=== PATIENT | male | born 1975 | race Caucasian/White ===

== ENCOUNTER 2017-06-20 03:30 | Emergency (ER) | payer BC, MEDICAID ==
[2017-06-20 04:01] VITALS: BP 135/86
[2017-06-20] MEDS ORDERED: Azithromycin 250 MG Tab PO ONE (04:07)
--- NOTE | 2017-06-24 09:49 | ER ---
DATE SEEN: 06/20/2017 TIME SEEN: The patient was seen at 0345 hours. HISTORY OF PRESENT ILLNESS: The patient notes that he feels short of breath. He has "a little wheezing" and he has a slight pain in his chest when he coughs. Denies fever, but has slightly productive cough and slightly congested and associated sore throat. He has been sick for the last 2 to 3 days. His and daughter are healthy and stable. 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 He drinks alcohol rarely, does not smoke, weighs 320 pounds, and recently had tests at the clinic and they are "all slightly bad". He is not put on any medicine. ALLERGIES: None. MEDICATIONS: None. In the past, he has come in for his sinusitis and dental abscess. He has discussed mild burning in his throat. He has some chest burning also. REVIEW OF SYSTEMS: Negative except for he is overweight. He had recent multiple abnormal lab tests at the clinic, but does not remember what they are. Review of systems otherwise negative. PHYSICAL EXAMINATION: VITAL SIGNS: Blood pressure 135/86, heart rate 92, respirations 18, oxygen saturation 95%, and temperature is 36.4 degrees centigrade. GENERAL: Very obese, pear-shaped, 320-pound man in no acute distress. HEENT/NECK: Pressure on the sinuses. Minimal discomfort. No pain in the back of his neck. No pain in the anterior neck. Minimal cervical adenopathy. NECK: Supple. Pharynx with mild erythema. LUNGS: Clear to auscultation anteriorly and superiorly, but he has rales at the bases bilateral on both sides. Mild number of rales. He has mild audible breathing when he breathes. Audible breath sounds. No stridor. HEART: S1, S2. No irregular rate and rhythm. No murmur. ABDOMEN: Moderate increased fullness and tense into his abdomen because of his obesity. No palpable masses or megaly of the liver or spleen. EXTREMITIES: With 1+ pedal edema. ASSESSMENT: Bronchitis, early pneumonia, and pharyngitis. PLAN: [place]. Two quarts of water a day. Wear a face mask. (He did not want to wear his face mask when the nurse gave him one, so he is disinclined to use it, but I encouraged him to use it to spare other people of his infection). Follow up with doctor as needed in 1 to 2 weeks and earlier if worse. /[id number] MAGEN/ANNIKA GUERRERO
== END 2017-06-20 04:15 | disposition home or self-care (01) ==
LOC: FB.ED 03:30
DX: J18.9 Pneumonia, unspecified organism (principal); J40 Bronchitis, not specified as acute or chronic; J02.9 Acute pharyngitis, unspecified
CPT/HCPCS: 99284; A9270

== ENCOUNTER 2017-06-30 11:59 | Emergency (ER) | payer BC, MEDICAID ==
[2017-06-30] MEDS ORDERED: Ketorolac 60 MG/2 ML SDV IM ONE (12:08)
[2017-06-30] MEDS ORDERED: Lactated Ringers 1,000 ML IV ONE (12:14)
[2017-06-30] MEDS ORDERED: HYDROmorphone 2 MG/ML SDV IVPUSH ONE ×2 (12:15→14:29)
[2017-06-30] MEDS ORDERED: Ketorolac 30 MG/ML SDV IVPUSH ONE (12:15)
[2017-06-30] MEDS ORDERED: Ondansetron 4 MG/2 ML SDV IVPUSH ONE (12:16)
--- NOTE | 2017-06-30 12:22 | EDM.PDOC ---
ED HPI GENERAL MEDICAL PROBLEM - General Chief Complaint: Gastrointestinal Problem Stated Complaint: STOMACH PAIN Time Seen by Provider: 06/30/17 12:10 Source of Information: Reports: Patient History Limitations: Reports: No Limitations - History of Present Illness INITIAL COMMENTS - FREE TEXT/NARRATIVE: 41 yo male here with abrupt onset of L sided abdominal pain that began about 20 minutes before arrival and occurred while sitting at a desk. Normal BM's lately. Urination before the onset of pain revealed somewhat dark colored urine. No fever. No nausea before arrival. No prior surgeries. No hx of kidney stones. Here alone. Is now retching/vomiting in the ER. Onset: Today Onset Date: 06/30/17 Onset Time: 11:50 Duration: Minutes: Location: Reports: Abdomen Quality: Reports: Other (Feels like something exploded in his abdomen. ) Severity: Severe Improves with: Reports: None Worsens with: Reports: None Context: Reports: Other (unknown) Associated Symptoms: Reports: Nausea/Vomiting (now for the first time in the ER) . 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 Psychiatric History: Reports: Anxiety, Depression, Psych Hospitalization(s) Dermatologic History: Reports: Other (See Below) Other Dermatologic History: Hx MRSA to L groin area in past. - Infectious Disease History Infectious Disease History: Reports: MRSA - Past Surgical History HEENT Surgical History: Reports: Other (See Below) Social & Family History - Family History Family Medical History: Noncontributory - Tobacco Use Smoking Status *Q: Former Smoker Years of Tobacco use: 32 Packs/Tins Daily: 1 Used Tobacco, but Quit: No Second Hand Smoke Exposure: No - Recreational Drug Use Recreational Drug Use: No Drug Use in Last 12 Months: No Recreational Drug Type: Reports: Marijuana/Hashish ED ROS GENERAL - Review of Systems Review Of Systems: See Below Constitutional: Reports: No Symptoms HEENT: Reports: No Symptoms Respiratory: Reports: No Symptoms Cardiovascular: Reports: No Symptoms Endocrine: Reports: No Symptoms GI/Abdominal: Reports: Abdominal Pain, Nausea, Vomiting. Denies: Black Stool, Bloody Stool, Constipation, Diarrhea, Distension, Flatus, Hematemesis, Hematochezia, Melena, Stool Incontinence : Reports: Other (urine dark in color today) Musculoskeletal: Reports: No Symptoms Skin: Reports: No Symptoms Neurological: Reports: No Symptoms ED EXAM, GI/ABD - Physical Exam Exam: See Below Exam Limited By: No Limitations General Appearance: Alert, WD/WN, Mild Distress, Obese Eyes: Bilateral: Normal Appearance Ears: Normal External Exam, Normal Canal, Hearing Grossly Normal Nose: Normal Inspection, Normal Mucosa, No Blood Throat/Mouth: Normal Inspection, Normal Lips, Normal Oropharynx, Normal Voice, No Airway Compromise Head: Atraumatic, Normocephalic Neck: Normal Inspection, Supple, Non-Tender Respiratory/Chest: No Respiratory Distress, Lungs Clear, Normal Breath Sounds, No Accessory Muscle Use Cardiovascular: Regular Rate, Rhythm, No Edema GI/Abdominal Exam: Soft, No Distention, Tender (L mid abdomen), Abnormal Bowel Sounds (slightly decreased.), Other (Obese). No: Guarding, Rigid, Rebound Back Exam: Normal Inspection. No: CVA Tenderness (R), CVA Tenderness (L) Extremities: Normal Range of Motion, Non-Tender, Normal Capillary Refill, Pedal Edema (Trace to both LE's below the knees.). No: Joint Swelling, Anila's Sign, Leg Pain, Limited Range of Motion, Increased Warmth, Mottled, Redness Neurological: Alert, Oriented, CN II-XII Intact, Normal Cognition, No Motor/ Sensory Deficits Psychiatric: Normal Affect, Normal Mood Skin Exam: Warm, Dry, Intact, No Rash, Other (hemosiderin staining of the skin of both lower legs.). No: Cyanosis, Diaphoretic, Ecchymosis, Erythema, Jaundice , Petechiae, Rash, Wound/Incision, Zoster-Like Rash Lymphatic: No Adenopathy Course - Vital Signs Last Recorded V/S: Last Vital Signs Temp 36.4 C 06/30/17 12:00 Pulse 75 06/30/17 12:00 Resp 22 H 06/30/17 12:00 BP 133/79 06/30/17 12:00 Pulse Ox 100 06/30/17 12:00 - Orders/Labs/Meds Labs: Laboratory Tests 06/30/17 06/30/17 06/30/17 Range/Units 12:35 12:35 12:35 WBC 8.3 (4.5-12.0) X10-3/uL RBC 4.97 (4.30-5.75) x10(6)uL Hgb 14.7 (11.5-15.5) g/dL Hct 42.5 (30.0-51.3) % MCV 85.5 (80-96) fL MCH 29.7 (27.7-33.6) pg MCHC 34.7 (32.2-35.4) g/dL RDW 12.4 (11.5-15.5) % Plt Count 259 (125-369) X10(3)uL Sodium 136 (135-145) mmol/L Potassium 3.9 (3.5-5.3) mmol/L Chloride 104 (100-110) mmol/L Carbon Dioxide 21 L (23-29) mmol/L BUN 15 (5-20) mg/dL Creatinine 0.7 (0.6-1.3) mg/dL Est Cr Clr Drug Dosing 153.97 mL/min Estimated GFR (MDRD) > 60 (>60) BUN/Creatinine Ratio 21.4 H (9-20) Glucose 180 H (80-116) mg/dL Calcium 8.9 (8.6-10.2) mg/dL Total Bilirubin 0.7 (0.1-1.3) mg/dL AST 26 (5-27) IU/L ALT 29 H (14-26) IU/L Alkaline Phosphatase 54 L (56-112) IU/L C-Reactive Protein 0.7 (0.0-1.0) mg/dL Total Protein 7.3 (6.0-8.0) g/dL Albumin 4.1 (3.5-5.2) g/dL Globulin 3.2 g/dL Albumin/Globulin Ratio 1.3 Urine Color (YELLOW) Urine Appearance (CLEAR) Urine pH (5.0-6.5) Ur Specific [place] (1.010-1.025) Urine Protein (NEGATIVE) mg/dL Urine Glucose (UA) (NEGATIVE) mg/dL Urine Ketones (NEGATIVE) mg/dL Urine Occult Blood (NEGATIVE) Urine Nitrite (NEGATIVE) Urine Bilirubin (NEGATIVE) Urine Urobilinogen (NEGATIVE) mg/dL Ur Leukocyte Esterase (NEGATIVE) Urine RBC (0) Urine WBC (0) Ur Squamous Epith Cells (NS,R,O) Urine Bacteria (NS) Urine Mucus (NS) 06/30/17 Range/Units 13:30 WBC (4.5-12.0) X10-3/uL RBC (4.30-5.75) x10(6)uL Hgb (11.5-15.5) g/dL Hct (30.0-51.3) % MCV (80-96) fL MCH (27.7-33.6) pg MCHC (32.2-35.4) g/dL RDW (11.5-15.5) % Plt Count (125-369) X10(3)uL Sodium (135-145) mmol/L Potassium (3.5-5.3) mmol/L Chloride (100-110) mmol/L Carbon Dioxide (23-29) mmol/L BUN (5-20) mg/dL Creatinine (0.6-1.3) mg/dL Est Cr Clr Drug Dosing mL/min Estimated GFR (MDRD) (>60) BUN/Creatinine Ratio (9-20) Glucose (80-116) mg/dL Calcium (8.6-10.2) mg/dL Total Bilirubin (0.1-1.3) mg/dL AST (5-27) IU/L ALT (14-26) IU/L Alkaline Phosphatase (56-112) IU/L C-Reactive Protein (0.0-1.0) mg/dL Total Protein (6.0-8.0) g/dL Albumin (3.5-5.2) g/dL Globulin g/dL Albumin/Globulin Ratio Urine Color Yellow (YELLOW) Urine Appearance Slightly cloudy (CLEAR) Urine pH 5.0 (5.0-6.5) Ur Specific [place] 1.030 H (1.010-1.025) Urine Protein Negative (NEGATIVE) mg/dL Urine Glucose (UA) 50 H (NEGATIVE) mg/dL Urine Ketones Negative (NEGATIVE) mg/dL Urine Occult Blood Large H (NEGATIVE) Urine Nitrite Negative (NEGATIVE) Urine Bilirubin Negative (NEGATIVE) Urine Urobilinogen Normal (NEGATIVE) mg/dL Ur Leukocyte Esterase Negative (NEGATIVE) Urine RBC >100 H (0) Urine WBC 0-5 (0) Ur Squamous Epith Cells Rare (NS,R,O) Urine Bacteria Moderate H (NS) Urine Mucus Many H (NS) Meds: Medications Discontinued Medications Generic Name Dose Route Start Last Admin Trade Name Marekq PRN Reason Stop Dose Admin Hydromorphone HCl 0.5 mg 06/30/17 12:15 06/30/17 12:30 Dilaudid IVPUSH 06/30/17 12:16 0.5 mg ONETIME ONE Administration Lactated Ringer's 1,000 mls @ 1,000 mls/hr 06/30/17 12:14 06/30/17 12:28 Ringers, Lactated IV 06/30/17 13:13 1,000 mls/hr BOLUS ONE Administration Ketorolac Tromethamine 60 mg 06/30/17 12:08 06/30/17 12:34 Toradol IM 06/30/17 12:09 Not Given ONETIME ONE Ketorolac Tromethamine 30 mg 06/30/17 12:15 06/30/17 12:31 Toradol IVPUSH 06/30/17 12:16 30 mg ONETIME ONE Administration Ondansetron HCl 8 mg 06/30/17 12:16 06/30/17 12:33 Zofran IVPUSH 06/30/17 12:17 8 mg ONETIME ONE Administration Departure - Departure Time of Disposition: 14:15 Disposition: Home, Self-Care 01 Condition: Fair Clinical Impression: Ureterolithiasis, Elevated blood sugar Obesity Qualifiers: Obesity type: due to excess calories Obesity classification: unspecified obesity classification Serious obesity comorbidity presence: without serious comorbidity Qualified Code(s): E66.09 - Other obesity due to excess calories - Discharge Information Forms: ED Department Discharge
[2017-06-30 15:06] VITALS: BP 136/78
== END 2017-06-30 14:45 | disposition home or self-care (01) ==
LOC: FB.ED 11:59
DX: N20.1 Calculus of ureter (principal); R73.9 Hyperglycemia, unspecified; E66.09 Other obesity due to excess calories; Z87.891 Personal history of nicotine dependence
CPT/HCPCS: 36415; 80053; 81001; 85027; 86140; 96361; 96374; 96375; 96376; 99283; J1170; J1885; J2405; J7120

== ENCOUNTER 2017-07-28 15:54 | Emergency (ER) | payer BC, MEDICAID, OTHER ==
[2017-07-28] MEDS ORDERED: Ketorolac 60 MG/2 ML SDV IM ONE (16:14)
--- NOTE | 2017-07-28 16:20 | EDM.PDOC ---
ED HPI GENERAL MEDICAL PROBLEM - General Chief Complaint: Flank Pain Stated Complaint: KIDNEY STONES Time Seen by Provider: 07/28/17 16:05 Source of Information: Reports: Patient, Old Records History Limitations: Reports: No Limitations - History of Present Illness INITIAL COMMENTS - FREE TEXT/NARRATIVE: 41 yo male presents with LLQ abdominal pain with radiation to the L flank much like he had a month ago when seen for presumed kidney stone. Passed some small debri last time, but never had it analyzed. Pain is a little less now than earlier. No fever. Nausea has passed. 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 Psychiatric History: Reports: Anxiety, Depression, Psych Hospitalization(s) Dermatologic History: Reports: Other (See Below) Other Dermatologic History: Hx MRSA to L groin area in past. - Infectious Disease History Infectious Disease History: Reports: MRSA - Past Surgical History HEENT Surgical History: Reports: Other (See Below) Social & Family History - Family History Family Medical History: Noncontributory - Tobacco Use Smoking Status *Q: Former Smoker Years of Tobacco use: 32 Packs/Tins Daily: 1 Used Tobacco, but Quit: No Second Hand Smoke Exposure: No - Recreational Drug Use Recreational Drug Use: No Drug Use in Last 12 Months: No Recreational Drug Type: Reports: Marijuana/Hashish ED ROS GENERAL - Review of Systems Review Of Systems: See Below Constitutional: Reports: No Symptoms Respiratory: Reports: No Symptoms Cardiovascular: Reports: No Symptoms GI/Abdominal: Reports: Abdominal Pain (LLQ), Nausea. Denies: Black Stool, Bloody Stool, Constipation, Diarrhea, Decreased Appetite, Hematemesis, Hematochezia, Melena, Vomiting : Reports: Flank Pain (Left). Denies: Discharge, Dysuria, Frequency, Hematuria, Pain, Urgency, Urinary Retention Musculoskeletal: Reports: No Symptoms Skin: Reports: No Symptoms Neurological: Reports: No Symptoms ED EXAM, GI/ABD - Physical Exam Exam: See Below Exam Limited By: No Limitations General Appearance: Alert, WD/WN, No Apparent Distress, Obese Eyes: Bilateral: Normal Appearance Ears: Normal External Exam, Normal Canal, Hearing Grossly Normal Nose: Normal Inspection, Normal Mucosa Throat/Mouth: Normal Inspection, Normal Lips, Normal Oropharynx, Normal Voice, No Airway Compromise Head: Atraumatic, Normocephalic Neck: Normal Inspection, Supple Respiratory/Chest: No Respiratory Distress, Lungs Clear, Normal Breath Sounds, No Accessory Muscle Use Cardiovascular: Regular Rate, Rhythm GI/Abdominal Exam: Normal Bowel Sounds, Soft, No Distention, Tender (minimal LLQ on palpation) Back Exam: Normal Inspection. No: CVA Tenderness (R), CVA Tenderness (L) Extremities: Normal Inspection, Normal Range of Motion, Non-Tender, No Pedal Edema Neurological: Alert, Oriented, CN II-XII Intact, Normal Cognition, No Motor/ Sensory Deficits Psychiatric: Normal Affect, Normal Mood Skin Exam: Warm, Dry, Intact, Normal Color, No Rash Lymphatic: No Adenopathy Course - Vital Signs Last Recorded V/S: Last Vital Signs Temp 36.8 C 07/28/17 17:02 Pulse 76 07/28/17 17:02 Resp 18 07/28/17 17:02 BP 129/79 07/28/17 17:02 Pulse Ox 97 07/28/17 17:02 - Orders/Labs/Meds Orders: Active Orders 24 hr Category Date Time Status Abdomen Pelvis wo Cont [CT] Stat Exams 07/28/17 16:14 Taken CULTURE URINE [RM] Stat Lab 07/28/17 16:51 Received CULTURE URINE [RM] Stat Lab 07/28/17 17:38 Ordered Labs: Laboratory Tests 07/28/17 Range/Units 16:51 Urine Color [place] (YELLOW) Urine Appearance Slightly cloudy (CLEAR) Urine pH 5.0 (5.0-6.5) Ur Specific [place] 1.025 (1.010-1.025) Urine Protein Negative (NEGATIVE) mg/dL Urine Glucose (UA) 250 H (NEGATIVE) mg/dL Urine Ketones Negative (NEGATIVE) mg/dL Urine Occult Blood Large H (NEGATIVE) Urine Nitrite Negative (NEGATIVE) Urine Bilirubin Negative (NEGATIVE) Urine Urobilinogen Normal (NEGATIVE) mg/dL Ur Leukocyte Esterase Negative (NEGATIVE) Urine RBC >100 H (0) Urine WBC 10-20 H (0) Ur Squamous Epith Cells Moderate H (NS,R,O) Urine Bacteria Moderate H (NS) Urine Mucus Moderate H (NS) Meds: Medications Discontinued Medications Generic Name Dose Route Start Last Admin Trade Name Freq PRN Reason Stop Dose Admin Cephalexin 500 mg 07/28/17 17:43 Keflex PO 07/28/17 17:44 ONETIME ONE Ketorolac Tromethamine 60 mg 07/28/17 16:14 07/28/17 16:25 Toradol IM 07/28/17 16:15 60 mg ONETIME ONE Administration - Radiology Interpretation CT Results Date: 07/28/17 Departure - Departure Time of Disposition: 17:46 Disposition: Home, Self-Care 01 Condition: Good Clinical Impression: Ureterolithiasis - Discharge Information Prescriptions: Cephalexin 500 mg PO TID #14 tablet Referrals: PCP,Not In Area [Primary Care Provider] - Forms: ED Department Discharge Additional Instructions: Drink ample fluids. Take cephalexin as directed. Recheck as needed. - My Orders Last 24 Hours: My Active Orders 07/28/17 16:14 Abdomen Pelvis wo Cont [CT] Stat 07/28/17 16:51 CULTURE URINE [RM] Stat 07/28/17 17:38 CULTURE URINE [RM] Stat - Assessment/Plan Last 24 Hours: My Active Orders 07/28/17 16:14 Abdomen Pelvis wo Cont [CT] Stat 07/28/17 16:51 CULTURE URINE [RM] Stat 07/28/17 17:38 CULTURE URINE [RM] Stat
[2017-07-28] MEDS ORDERED: Cephalexin 500 MG Cap PO ONE (17:43)
[2017-07-28 20:14] VITALS: BP 125/82
--- NOTE | 2017-07-29 08:43 | CT ---
INDICATION: Left-sided groin pain x30 minutes. No hematuria, question left kidney stone. CT ABDOMEN AND PELVIS WITHOUT CONTRAST: Spiral 2.5-mm axial sections were obtained through the abdomen and pelvis with renal calculus protocol, including sagittal and coronal reconstructions. No contrast was utilized. Examination date is 07/28/2017 and is compared with 05/05/2017. Total Exam DLP = 2036.31 mGy-cm. Periportal lymphadenopathy is again noted of indeterminate etiology. No specific mass was identified. Retroperitoneal lymphadenopathy is also noted and appears mostly stable, compared with the previous study. The liver was unremarkable, with no gallstones demonstrated in the gallbladder. Adrenal glands and kidneys appeared normal, without evidence of renal calcinosis , obstructive uropathy, or renal masses identified. Spleen and pancreas were unremarkable. No retroperitoneal masses were identified. The appendix appeared normal, visualized on axial images #256 through #276. No evidence of an inguinal hernia was identified. No evidence of bowel obstruction was seen. What appears to be a diverticulum with a density within it, may represent barium or possibly a tiny fecalith. The urinary bladder had a normal appearance. The prostate was not enlarged. No evidence of anterior abdominal wall hernia was identified. No organomegaly, mass lesions, or free fluid collections were identified in the abdomen or pelvis. IMPRESSION: 1. Periportal lymphadenopathy again noted of indeterminate etiology. 2. No findings to suggest an etiology for the patient's left inguinal pain - groin pain - could be identified. CT PELVIS: Examination of the pelvis was obtained by CT, as noted above, and revealed no organomegaly, mass lesions, or free fluid collections in the pelvis. Calcific density is noted in what appears to be a diverticulum off the cecum. The appendix was unremarkable. No evidence of bowel obstruction was seen. The prostate was normal in size. The urinary bladder was unremarkable. No hernias were identified. Report was called to Dr. Vaz at 1708 hours, 07/28/2017. C[facility]
== END 2017-07-28 18:06 | disposition home or self-care (01) ==
LOC: FB.ED 15:54
DX: N20.1 Calculus of ureter (principal); Z87.891 Personal history of nicotine dependence
CPT/HCPCS: 74176; 81001; 87086; 96372; 99284; A9270; J1885

== ENCOUNTER 2017-09-17 03:23 | Observation (INO) | payer MEDICAID, OTHER ==
[2017-09-17] MEDS ORDERED: Glucagon,Human Recombinant 1 MG Vial IV STA (03:59)
[2017-09-17] MEDS ORDERED: Glucagon,Human Recombinant 1 MG Vial ONE (04:05)
[2017-09-17] MEDS: Sodium Chloride 0.9% 1,000 ML IV SCH ×2 (04:15→10:55)
--- NOTE | 2017-09-17 04:16 | EDM.PDOC ---
ED HPI GENERAL MEDICAL PROBLEM - General Chief Complaint: General Stated Complaint: MEAT STUCK IN HIS THROAT Time Seen by Provider: 09/17/17 03:25 Source of Information: Reports: Patient History Limitations: Reports: No Limitations - History of Present Illness INITIAL COMMENTS - FREE TEXT/NARRATIVE: 41 years old w male ate some steak at 2.30 am and felt the stake is stuck in his esophagus. Pt was not able to drink water and occ spits his saliva out. Pt had similar symptoms 5 years ago when glucagon did not help and the food bolus had to be removed endoscopically . Pt last weight in the past few months. He does not take any meds. No Nausea, no dizziness. or other acute medical issues. BP 124/79 pulse 70 RR 16 Pulse ox 94 Temp 36.4 Onset Date: 09/17/17 Onset Time: 02:30 Duration: Hour(s): Location: Reports: Abdomen Quality: Reports: Ache, Burning, Dull Severity: Mild Improves with: Reports: None Worsens with: Reports: Eating Context: Reports: Other (food bolus) - Related Data Allergies Allergy/AdvReac Type Severity Reaction Status Date / Time No Known Allergies Allergy Verified 09/17/17 04:42 Home Meds: Home Meds NK [No Known Home Meds] 09/17/17 [History] Past Medical History - Past Health History Medical/Surgical History: Denies Medical/Surgical History HEENT History: Reports: Hard of Hearing Other HEENT History: R hearing issues, had MRSA behind R eardrum. Gastrointestinal History: Reports: Other (See Below) Other Gastrointestinal History: Had stomach issues when child, but unsure what were. Psychiatric History: Reports: Anxiety, Depression, Psych Hospitalization(s) Dermatologic History: Reports: Other (See Below) Other Dermatologic History: Hx MRSA to L groin area in past. - Infectious Disease History Infectious Disease History: Reports: MRSA - Past Surgical History HEENT Surgical History: Reports: Other (See Below) Social & Family History - Family History Family Medical History: Noncontributory - Tobacco Use Smoking Status *Q: Former Smoker Years of Tobacco use: 6 Packs/Tins Daily: 1 Used Tobacco, but Quit: No Month Tobacco Last Used: 2016 Second Hand Smoke Exposure: No - Caffeine Use Caffeine Use: Reports: Energy Drinks - Recreational Drug Use Recreational Drug Use: No Drug Use in Last 12 Months: No Recreational Drug Type: Reports: Marijuana/Hashish ED ROS GENERAL - Review of Systems Review Of Systems: See Below Constitutional: Reports: No Symptoms, Decreased Appetite, Weight Loss HEENT: Reports: No Symptoms Respiratory: Reports: No Symptoms Cardiovascular: Reports: No Symptoms Endocrine: Reports: No Symptoms GI/Abdominal: Reports: Difficulty Swallowing : Reports: No Symptoms Musculoskeletal: Reports: No Symptoms Skin: Reports: No Symptoms Neurological: Reports: No Symptoms Psychiatric: Reports: No Symptoms Hematologic/Lymphatic: Reports: No Symptoms Immunologic: Reports: No Symptoms ED EXAM, GENERAL - Physical Exam Exam: See Below Exam Limited By: No Limitations General Appearance: Alert, WD/WN, Mild Distress Eye Exam: Bilateral Eye: Normal Inspection Ear Exam: Bilateral Ear: Auricle Normal Nose: Normal Inspection, Normal Mucosa Throat/Mouth: Normal Inspection, Normal Lips Head: Atraumatic, Normocephalic Neck: Normal Inspection, Supple, Non-Tender Respiratory/Chest: No Respiratory Distress, Lungs Clear, Normal Breath Sounds Cardiovascular: Normal Peripheral Pulses, Regular Rate, Rhythm, No Edema Peripheral Pulses: 1+: Brachial (R) GI/Abdominal: No Organomegaly, No Mass, Pelvis Stable, Other (food bolus in esopphagus) (Male) Exam: No Hernia Rectal (Males) Exam: Deferred Back Exam: Normal Inspection, Full Range of Motion Extremities: Normal Inspection, Normal Range of Motion, Non-Tender Neurological: Alert, Oriented, CN II-XII Intact, Normal Cognition, Normal Gait, No Motor/Sensory Deficits Psychiatric: Normal Affect, Normal Mood Lymphatic: No Adenopathy Course - Vital Signs Text/Narrative:: 41 years old w male ate some steak at 2.30 am and felt the stake is stuck in his esophagus. Pt was not able to drink water and occ spits his saliva out. Pt had similar symptoms 5 years ago when glucagon did not help and the food bolus had to be removed endoscopically . Pt last weight in the past few months. He does not take any meds. No Nausea, no dizziness. or other acute medical issues. BP 124/79 pulse 70 RR 16 Pulse ox 94 Temp 36.4 PE: obese 41 y.o.w.m with esophagial food impaction Labs: Pending Impression: Food bolus impaction, Obesity, Weight loss Tx: Glucagon 1 mg i.v, NS. NPO Plan: Admit to [facility], recheck, call Dr. Ambriz if no improvement. 8.01 am Reexam: Pt is not able swallow water, given to him, however, he is able to swallow the saliva. He does not spit the saliva out. blood sugar was 373 , Na was 132 8.20 am: Consultation: Dr. Ambriz, Surgeon, left message 8.50 am, Dr. 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 8.52 am: Consultation: Dr. Hamlin, Surgeon, will see the patient. Last Recorded V/S: Last Vital Signs Temp 37.3 C 09/17/17 05:10 Pulse 78 09/17/17 05:10 Resp 18 09/17/17 05:10 BP 115/78 09/17/17 05:10 Pulse Ox 94 L 09/17/17 05:10 - Orders/Labs/Meds Orders: Active Orders 24 hr Category Date Time Status Neck Soft Tissue [CR] Stat Exams 09/17/17 03:53 Taken Sodium Chloride 0.9% [Normal Saline] 1,000 ml Med 09/17/17 04:15 Active IV ASDIRECTED Medication Orders Sodium Chloride (Normal Saline) 1,000 mls @ 125 mls/hr IV ASDIRECTED BETTY Last Admin: 09/17/17 04:15 Dose: 125 mls/hr Meds: Medications Generic Name Dose Route Start Last Admin Trade Name Freq PRN Reason Stop Dose Admin Sodium Chloride 1,000 mls @ 125 mls/hr 09/17/17 04:15 09/17/17 04:15 Normal Saline IV 125 mls/hr ASDIRECTED BETTY Administration Discontinued Medications Generic Name Dose Route Start Last Admin Trade Name Freq PRN Reason Stop Dose Admin Glucagon 1 mg 09/17/17 03:59 09/17/17 04:23 Glucagen IV 09/17/17 04:00 1 mg ONETIME STA Administration Glucagon Confirm 09/17/17 04:05 09/17/17 04:22 Glucagen Administered 09/17/17 04:06 Not Given Dose 1 mg .ROUTE .STK-MED ONE Departure - Departure Time of Disposition: 04:19 Disposition: Admitted As Inpatient 67 Condition: Fair Clinical Impression: Bolus impaction of digestive tract, Hyponatremia - Discharge Information - My Orders Last 24 Hours: My Active Orders 09/17/17 03:53 Neck Soft Tissue [CR] Stat 09/17/17 04:15 Sodium Chloride 0.9% [Normal Saline] 1,000 ml IV ASDIRECTED - Assessment/Plan Last 24 Hours: My Active Orders 09/17/17 03:53 Neck Soft Tissue [CR] Stat 09/17/17 04:15 Sodium Chloride 0.9% [Normal Saline] 1,000 ml IV ASDIRECTED
[2017-09-17] MEDS ORDERED: Lidocaine 2% 100 MG/5 ML Syringe IVPUSH ONE (10:13)
[2017-09-17] MEDS ORDERED: Propofol 200 MG/20 ML SDV IV ONE (10:13)
[2017-09-17] MEDS ORDERED: Midazolam 1 MG/ML 2 ML SDV IV ONE (10:13)
[2017-09-17] MEDS ORDERED: Ketamine 500 mg/10 ML MDV IV ONE (10:13)
--- NOTE | 2017-09-17 10:41 | PCM.OPNOTE ---
- General Post-Op/Procedure Note Date of Surgery/Procedure: 09/17/17 Operative Procedure(s): egd with removal of food impaction Findings: impacted meat in esophagus Pre Op Diagnosis: food impaction Post-Op Diagnosis: Same Anesthesia Technique: MAC Primary Surgeon: Chris Hamlin Anesthesia Provider: Lázaro Guerar Pathology: impacted food Complications: None Condition: Good Free Text/Narrative:: see dictation
[2017-09-17] MEDS ORDERED: Pantoprazole 40 MG Vial IVPUSH SCH (10:45)
--- NOTE | 2017-09-17 11:09 | PCM.HP ---
H&P History of Present Illness - General Date of Service: 09/17/17 Admit Problem/Dx: Admission Diagnosis/Problem Admission Diagnosis/Problem Food impaction of esophagus Source of Information: Patient History Limitations: Reports: No Limitations - History of Present Illness Initial Comments - Free Text/Narative: Patient admitted for food impaction. Noted to have hyperglycemia. Has had symptoms of weight loss, polyuria ,polydypsa over a few months.Chews tobacco. - Related Data Allergies/Adverse Reactions: Allergies Allergy/AdvReac Type Severity Reaction Status Date / Time No Known Allergies Allergy Verified 09/17/17 04:42 Home Medications: Home Meds NK [No Known Home Meds] 09/17/17 [History] Past Medical History - Past Health History Medical/Surgical History: Denies Medical/Surgical History HEENT History: Reports: Hard of Hearing Other HEENT History: R hearing issues, had MRSA behind R eardrum. Respiratory History: Reports: Other (See Below) Other Respiratory History: states that he has hx of having a piece of meat in his throat 5-6 years ago that he ended up being sedated to remove the meat. Gastrointestinal History: Reports: Other (See Below) Other Gastrointestinal History: Had stomach issues when child, but unsure what were. Psychiatric History: Reports: Anxiety, Depression, Psych Hospitalization(s) Dermatologic History: Reports: Other (See Below) Other Dermatologic History: Hx MRSA to L groin area in past. - Infectious Disease History Infectious Disease History: Reports: MRSA - Past Surgical History HEENT Surgical History: Reports: Other (See Below) Social & Family History - Family History Family Medical History: Noncontributory - Tobacco Use Smoking Status *Q: Former Smoker Years of Tobacco use: 6 Packs/Tins Daily: 1 Used Tobacco, but Quit: No Month Tobacco Last Used: 2016 Second Hand Smoke Exposure: No - Caffeine Use Caffeine Use: Reports: Energy Drinks - Recreational Drug Use Recreational Drug Use: No Drug Use in Last 12 Months: No Recreational Drug Type: Reports: Marijuana/Hashish H&P Review of Systems - Review of Systems: Review Of Systems: ROS reveals no pertinent complaints other than HPI. Exam - Exam Exam: See Below - Vital Signs Vital Signs: Last Vital Signs Temp 98.4 F 09/17/17 08:00 Pulse 75 09/17/17 10:42 Resp 14 09/17/17 10:42 BP 121/76 12/28/17 10:42 Pulse Ox 95 09/17/17 10:42 Weight: 128.185 kg - Exam General: Alert, Oriented, 4 HEENT: PERRLA, Hearing Intact, Mucosa Moist & [place], Nares Patent, Normal Nasal Septum, Posterior Pharynx Clear, Conjunctiva Clear, EOMI, EACs Clear, TMs Clear Neck: Supple, Trachea Midline, 2 Lungs: Clear to Auscultation, Normal Respiratory Effort Cardiovascular: Regular Rate, Regular Rhythm GI/Abdominal Exam: Normal Bowel Sounds, Soft, Non-Tender, No Organomegaly, No Distention, No Abnormal Bruit, No Mass, Pelvis Stable (Male) Exam: No Hernia, Normal Inspection, Normal Prostate, Circumcised Rectal (Males) Exam: Normal Exam, Normal Rectal Tone, Prostate Normal Back Exam: Normal Inspection, Full Range of Motion, NT Extremities: Normal Inspection, Normal Range of Motion, Non-Tender, No Pedal Edema, Normal Capillary Refill Skin: Warm, Dry, Intact Neurological: Cranial Nerves Intact, Reflexes Equal Bilateral Neuro Extensive - Mental Status: Alert, Oriented x3, Normal Mood/Affect, Normal Cognition Neuro Extensive - Motor, Sensory, Reflexes: CN II-XII Intact, Normal Gait, Normal Reflexes Psychiatric: Alert, Normal Affect, Normal Mood - Patient Data Lab Results Last 24 hrs: Laboratory Results - last 24 hr 09/17/17 09/17/17 09/17/17 Range/Units 04:35 04:35 07:00 WBC 7.3 (4.5-12.0) X10-3/uL RBC 4.77 (4.30-5.75) x10(6)uL Hgb 14.0 (11.5-15.5) g/dL Hct 40.9 (30.0-51.3) % MCV 85.7 (80-96) fL MCH 29.3 (27.7-33.6) pg MCHC 34.2 (32.2-35.4) g/dL RDW 11.9 (11.5-15.5) % Plt Count 309 (125-369) X10(3)uL MPV 7.6 (7.4-10.4) fL Neut % (Auto) 59.3 (46-82) % Lymph % (Auto) 31.5 (13-37) % [place]he % (Auto) 4.4 (4-12) % Eos % (Auto) 4 (1.0-5.0) % Baso % (Auto) 1 (0-2) % Neut # (Auto) 4.3 (1.6-8.3) # Lymph # (Auto) 2.3 (0.6-5.0) # Ashe # (Auto) 0.3 (0.0-1.3) # Eos # (Auto) 0.3 (0.0-0.8) # Baso # (Auto) 0.1 (0.0-0.2) # Sodium 132 L (135-145) mmol/L Potassium 4.0 (3.5-5.3) mmol/L Chloride 95 L (100-110) mmol/L Carbon Dioxide 26 (21-32) mmol/L BUN 13 (7-18) mg/dL Creatinine 0.9 (0.70-1.30) mg/dL Est Cr Clr Drug Dosing 119.75 mL/min Estimated GFR (MDRD) > 60 (>60) BUN/Creatinine Ratio 14.4 (9-20) Glucose 503 H* 373 H D (80-116) mg/dL Calcium 8.8 (8.6-10.2) mg/dL Result Diagrams: 09/17/17 04:35 09/17/17 04:35 *Q Meaningful Use (ADM) - VTE *Q VTE Criteria *Q: - Stroke *Q Stroke Criteria *Q: - AMI *Q AMI Criteria *Q: - Problem List (1) Hyperglycemia, unspecified SNOMED Code(s): 94960991 ICD Code: R73.9 - HYPERGLYCEMIA, UNSPECIFIED Status: Acute Current Visit : Yes (2) Bolus impaction of digestive tract SNOMED Code(s): 6977520 ICD Code: LLL6456 - Status: Acute Current Visit: Yes (3) Obesity SNOMED Code(s): 099171500 ICD Code: E66.9 - OBESITY, UNSPECIFIED Status: Acute Current Visit: Yes Qualifiers: Obesity type: due to excess calories Problem List Initiated/Reviewed/Updated: Yes Orders Last 24hrs: Active Orders 24 hr Category Date Time Status Accu Check [Blood Glucose Check, Bedside] [RC] TIDMEALS Care 09/17/17 09:19 Active Oxygen Therapy [RC] PRN Care 09/17/17 10:42 Active Verify Patient Consent Obtain [RC] ASDIRECTED Care 09/17/17 09:06 Active Vital Signs [RC] PER UNIT ROUTINE Care 09/17/17 10:42 Active Clear Liquid Diet [DIET] Diet 09/17/17 Dinner Active NPO [Nothing Per Oral Diet] [DIET] Diet 09/17/17 Lunch Active Nothing Per Oral Diet [DIET] Diet 09/17/17 Breakfast Active GLYCOSYLATED HEMOGLOBIN,HGBA1C [CHEM] Routine Lab 09/17/17 04:35 Received Insulin Aspart [NovoLOG] Med 09/17/17 12:00 Active See Protocol SUBCUT TIDMEALS Pantoprazole [ProTONIX IV] Med 09/17/17 10:45 Active 40 mg IVPUSH DAILY Medication Orders Sodium Chloride (Normal Saline) 1,000 mls @ 125 mls/hr IV ASDIRECTED [facility] Last Admin: 09/17/17 10:55 Dose: 125 mls/hr Infusion: 09/17/17 10:55 Dose: 125 mls/hr Admin: 09/17/17 04:15 Dose: 125 mls/hr Insulin Aspart (Novolog) 0 unit SUBCUT TIDMEALS BETTY PRN Reason: Protocol Pantoprazole Sodium (Protonix Iv) 40 mg IVPUSH DAILY [facility] Assessment/Plan Comment:: This is newly diagnosed DM. I have suggested-and sent scripts for Metformin, Lipitor. I counselled him against Tobacco abuse. I have advised Follow up with KATELYNN Farah within 1 week of discharge.
--- NOTE | 2017-09-17 11:16 | CONS ---
DATE OF CONSULTATION: 09/17/2017 CHIEF COMPLAINT: Dysphagia. HISTORY OF PRESENT ILLNESS: This is a 41-year-old white male, who ate some steak overnight and felt that it got stuck in his esophagus. He was not able to drink out water and occasionally spits out his saliva. He is unable to handle secretions since then, but he was put in for observation. He has had a longstanding history of dysphagia and he states that the food gets stuck on a fairly regular basis and he is usually able to vomit it up. He has lost a significant amount of weight in the past months, having lost over 50 pounds and reports that he has to urinate on a fairly frequent basis of every 4 hours. He also has a nonhealing skin lesion. 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 Does not smoke or drink. PAST MEDICAL HISTORY: Negative except for dysphagia. He does have a history of MRSA. PAST SURGICAL HISTORY: Essentially unremarkable. REVIEW OF SYSTEMS: CONSTITUTIONAL: The patient reports significant weight loss. HEENT: He has dysphagia. RESPIRATORY: He has no respiratory symptoms. CARDIOVASCULAR: No cardiovascular symptoms. : Frequent urination. SKIN: Skin lesion. PHYSICAL EXAMINATION: GENERAL: This is a well-developed, well-nourished white male, appearing in no acute distress. HEENT: Grossly within normal limits. LUNGS: Clear to auscultation. HEART: Regular rate and rhythm. ABDOMEN: Soft and nontender. LABORATORY DATA: Laboratory evaluation reveals a glucose of 373. ASSESSMENT: As follows: 1. Possible food impaction history of dysphagia. 2. Diabetes, clinically with his 50 pounds weight loss, nonhealing skin lesion, and frequent urination, he appears to have classic signs and symptoms of this disease. Unfortunately, the glucagon has screwed up his presentation of this and he will need to be on a sliding scale. PLAN: Upper endoscopy. Procedure and risks were explained to the patient to include bleeding, infection, and perforation. The patient expresses understanding and he asked us to proceed. /[id number] WINIFRED/ANNIKA
[2017-09-17 11:24] VITALS: BP 117/72
[2017-09-17] MEDS ORDERED: Insulin Aspart 100 Units/ML 3 ML Pen SUBCUT SCH (12:00)
--- NOTE | 2017-09-18 07:45 | CR ---
INDICATION: Food bolus after eating steak. NECK, SOFT TISSUE: Frontal and lateral views of the neck were obtained for soft tissue and revealed the prevertebral space to appear normal. The airway also appears to be patent. If foreign body is suspected clinically, additional workup, such as CT examination of the neck, may be helpful. MTDD
--- NOTE | 2017-09-21 07:34 | PCM.DCSUM1 ---
Discharge Summary - Discharge Data Discharge Date: 09/17/17 Discharge Disposition: Home, Self-Care 01 Condition: Good - Discharge Diagnosis/Problem(s) (1) Hyperglycemia, unspecified SNOMED Code(s): 54352837 ICD Code: R73.9 - HYPERGLYCEMIA, UNSPECIFIED Status: Acute (2) Bolus impaction of digestive tract SNOMED Code(s): 3889175 ICD Code: TOA9514 - Status: Acute (3) Obesity SNOMED Code(s): 028434745 ICD Code: E66.9 - OBESITY, UNSPECIFIED Status: Acute Qualifiers: Obesity type: due to excess calories - Patient Summary/Data Operative Procedure(s) Performed: egd with removal of food impaction - Discharge Plan Prescriptions/Med Rec: atorvaSTATin [Lipitor] 20 mg PO BEDTIME #30 tablet metFORMIN [Glucophage XR] 500 mg PO BIDMEALS #30 tab.er Home Medications: Home Meds atorvaSTATin [Lipitor] 20 mg PO BEDTIME #30 tablet 09/17/17 [Rx] metFORMIN [Glucophage XR] 500 mg PO BIDMEALS #30 tab.er 09/17/17 [Rx] Patient Handouts: Type 2 Diabetes Mellitus, Adult, Metformin tablets, Venous Thromboembolism Forms: ED Department Discharge Referrals: Abner Hooker MD [Primary Care Provider] - PCP,Unknown [Ordering Only Provider] - (1 week-[facility] PCP) - General Info Admission Dx/Problem (Free Text: Admission Diagnosis/Problem Admission Diagnosis/Problem Food impaction of esophagus Functional Status: Reports: Pain Controlled - Review of Systems General: Reports: No Symptoms HEENT: Reports: No Symptoms Pulmonary: Reports: No Symptoms Cardiovascular: Reports: No Symptoms Gastrointestinal: Reports: No Symptoms Genitourinary: Reports: No Symptoms Musculoskeletal: Reports: No Symptoms Skin: Reports: No Symptoms Neurological: Reports: No Symptoms Psychiatric: Reports: No Symptoms - Patient Data Vitals - Most Recent: Last Vital Signs Temp 98.4 F 09/17/17 08:00 Pulse 73 09/17/17 11:15 Resp 14 09/17/17 11:15 BP 117/72 09/17/17 11:15 Pulse Ox 95 09/17/17 11:15 Weight - Most Recent: 128.185 kg Med Orders - Current: Current Medications Discontinued Medications Glucagon (Glucagen) 1 mg IV ONETIME STA Stop: 09/17/17 04:00 Last Admin: 09/17/17 04:23 Dose: 1 mg Glucagon (Glucagen) Confirm Administered Dose 1 mg .ROUTE .STK-MED ONE Stop: 09/17/17 04:06 Last Admin: 09/17/17 04:22 Dose: Not Given Sodium Chloride (Normal Saline) 1,000 mls @ 125 mls/hr IV ASDIRECTED [facility] Last Admin: 09/17/17 10:55 Dose: 125 mls/hr Insulin Aspart (Novolog) [address] [facility] PRN Reason: Protocol Last Admin: 09/17/17 11:58 Dose: 8 units Pantoprazole Sodium (Protonix Iv) [address] [facility] Last Admin: 09/17/17 11:20 Dose: 40 mg - Exam General: Reports: Alert, Oriented HEENT: Reports: Pupils Equal, Pupils Reactive, EOMI, Mucous Membr. Moist/[place] Neck: Reports: Supple Lungs: Reports: Clear to Auscultation, Normal Respiratory Effort Cardiovascular: Reports: Regular Rate, Regular Rhythm GI/Abdominal Exam: Normal Bowel Sounds, Soft, Non-Tender, No Organomegaly, No Distention, No Abnormal Bruit, No Mass, Pelvis Stable (Male) Exam: No Hernia, Normal Inspection, Normal Prostate, Circumcised Rectal (Males) Exam: Normal Exam, Normal Rectal Tone, Prostate Normal Back Exam: Reports: Normal Inspection, Full Range of Motion Extremities: Normal Inspection, Normal Range of Motion, Non-Tender, No Pedal Edema, Normal Capillary Refill Skin: Reports: Warm, Dry, Intact Wound/Incisions: Reports: Healing Well Neurological: Reports: No New Focal Deficit Psy/Mental Status: Reports: Alert, Normal Affect, Normal Mood *Q Meaningful Use (DIS) - VTE *Q VTE Criteria *Q: - Stroke *Q Stroke Criteria *Q: - AMI *Q AMI Criteria *Q:
--- NOTE | 2017-09-22 07:33 | OR ---
DATE OF OPERATION: 09/22/2017 SURGEON: Chris Hamlin MD PROCEDURE PERFORMED: EGD with removal of food impaction. PREOPERATIVE DIAGNOSIS: Food impaction. POSTOPERATIVE DIAGNOSIS: Food impaction. INDICATIONS FOR PROCEDURE: This is a 41-year-old white male, who has had a history of multiple food impactions in the past. He was admitted overnight and was offered and accepted EGD. DESCRIPTION OF PROCEDURE: After an excellent IV sedation was administered, the bite block was inserted. Flexible endoscope was passed down the esophagus about midway down, we encountered a large food impaction. This was removed with a combination of graspers and Matthew net thereby opening up the esophagus. No marked stricture was noted. The scope was passed through the esophagus into the stomach and through the pylorus and slowly withdrawn, really no marked abnormality was noted. The scope was then removed. RECOMMENDATIONS: 1. Proton pump inhibitor. 2. Followup EGD in a couple of months. /[id number] /MODL
== END 2017-09-17 13:04 | disposition home or self-care (01) ==
LOC: FB.ED 03:23 → FB.MS 04:21
PROVIDERS: ADMIT Family Medicine; ATTEND Family Medicine
DX: T18.128A Food in esophagus causing other injury, initial encounter (principal); E66.09 Other obesity due to excess calories; F41.9 Anxiety disorder, unspecified; F32.9 Major depressive disorder, single episode, unspecified; X58.XXXA Exposure to other specified factors, initial encounter; E11.65 Type 2 diabetes mellitus with hyperglycemia; Z86.14 Personal history of Methicillin resistant Staphylococcus aureus infection; Z79.84 Long term (current) use of oral hypoglycemic drugs; Z87.891 Personal history of nicotine dependence; Z68.39 Body mass index [BMI] 39.0-39.9, adult
CPT/HCPCS: 00740; 36415; 43247; 70360; 80048; 82947; 82962; 83036; 85025; 96361; 96374; 99283; A9270; C9113; J1610; J2250; J2704; J7040; 96375; 99225; 99284; G0378

== ENCOUNTER 2017-12-07 05:58 | Emergency (ER) | payer BC ==
[2017-12-07] MEDS ORDERED: Aspirin 81 MG Tab.Chew PO ONE (06:13)
[2017-12-07] MEDS ORDERED: Nitroglycerin 0.4 MG Tab.SL SL ONE ×2 (06:14→06:38)
--- NOTE | 2017-12-07 06:50 | EDM.PDOC ---
ED HPI GENERAL MEDICAL PROBLEM - General Chief Complaint: Chest Pain Stated Complaint: CHEST PAIN Time Seen by Provider: 12/07/17 06:45 Source of Information: Reports: Patient History Limitations: Reports: No Limitations - History of Present Illness INITIAL COMMENTS - FREE TEXT/NARRATIVE: c/o CP x 1.5h L sided CP intermittent x 1.5h, no change with movement or deep breath, dull, no radiation no n/v, no sob, no f/c/d pain 4/10 on arrival at ED with normal VS, 3/10 after SL NTG x 1 says he has been awake all night becuase he is anxious, does not know why he is anxious lives with and 3 yo daughter, works at [employer], had worked nights until 2m ago when he changed companies and now works days at local [employer], on feet all day when working chews tobacco, had smoked age 11 to age 31, smoked 1 ppd when he quit dx with DM 3m ago with BS > 500, was 180 the month before, last A1C 11.2 from 3m ago begun on metformin 3m ago, glimepride 2 mg added 4d ago PCP Dr Thompson at [facility] who is there just on , comes from [place], last seen last wk EKG with SR 75, LAD -65, Q-wave in III and F, PWRP, 0.5 ST elevation diffusely no change in BP after 1st NTG, then SBP dec'd slightly to 109 after 2nd NTG and pt felt flushed, NS hung chest pain Pain Score (Numeric/FACES): 2 - Related Data Allergies Allergy/AdvReac Type Severity Reaction Status Date / Time soy Allergy throat Verified 12/07/17 06:38 closed, passed out Home Meds: Home Meds atorvaSTATin [Lipitor] 20 mg PO BEDTIME #30 tablet 09/17/17 [Rx] metFORMIN [Glucophage XR] 500 mg PO BIDMEALS #30 tab.er 09/17/17 [Rx] Glimepiride [Amaryl] 2 mg PO BEDTIME 12/07/17 [History] Past Medical History - Past Health History Medical/Surgical History: Denies Medical/Surgical History HEENT History: Reports: Hard of Hearing Other HEENT History: R hearing issues, had MRSA behind R eardrum. Respiratory History: Reports: Other (See Below) Other Respiratory History: states that he has hx of having a piece of meat in his throat 5-6 years ago that he ended up being sedated to remove the meat. Gastrointestinal History: Reports: Other (See Below) Other Gastrointestinal History: Had stomach issues when child, but unsure what were. Psychiatric History: Reports: Anxiety, Depression, Psych Hospitalization(s) Dermatologic History: Reports: Other (See Below) Other Dermatologic History: Hx MRSA to L groin area in past. - Infectious Disease History Infectious Disease History: Reports: MRSA - Past Surgical History HEENT Surgical History: Reports: Other (See Below) Social & Family History - Family History Family Medical History: Noncontributory - Tobacco Use Smoking Status *Q: Former Smoker Years of Tobacco use: 6 Packs/Tins Daily: 1 Used Tobacco, but Quit: No Month/Year Tobacco Last Used: 2016 Second Hand Smoke Exposure: No - Caffeine Use Caffeine Use: Reports: Energy Drinks - Recreational Drug Use Recreational Drug Use: No Drug Use in Last 12 Months: No Recreational Drug Type: Reports: Marijuana/Hashish ED ROS GENERAL - Review of Systems Review Of Systems: See Below Constitutional: Reports: No Symptoms HEENT: Reports: No Symptoms Respiratory: Reports: No Symptoms Cardiovascular: Reports: Chest Pain Endocrine: Reports: No Symptoms GI/Abdominal: Reports: No Symptoms : Reports: No Symptoms Musculoskeletal: Reports: No Symptoms Skin: Reports: No Symptoms Neurological: Reports: No Symptoms Psychiatric: Reports: No Symptoms Hematologic/Lymphatic: Reports: No Symptoms Immunologic: Reports: No Symptoms ED EXAM, GENERAL - Physical Exam Exam: See Below Exam Limited By: No Limitations General Appearance: Alert, WD/WN, No Apparent Distress, Other (pt states he has been anxious yet appears calm and in no distress, cooperative, pleasant). No: Anxious Eye Exam: Bilateral Eye: Normal Inspection Ears: Normal External Exam Nose: Normal Inspection, Normal Mucosa, No Blood Throat/Mouth: Normal Inspection, Normal Lips, Normal Teeth, Normal Gums, Normal Oropharynx, Normal Voice, No Airway Compromise Head: Atraumatic, Normocephalic Neck: Normal Inspection, Supple, Non-Tender, Full Range of Motion Respiratory/Chest: No Respiratory Distress, Lungs Clear, Normal Breath Sounds, No Accessory Muscle Use, Chest Non-Tender Cardiovascular: Regular Rate, Rhythm, No Edema, No Gallop, No JVD, No Murmur, No Rub GI/Abdominal: Normal Bowel Sounds, Soft, Non-Tender, No Distention Back Exam: Normal Inspection, Full Range of Motion, NT Extremities: Normal Inspection, Normal Range of Motion, Non-Tender, Other ( trace edema to knees b/l) Neurological: Alert, Oriented, CN II-XII Intact, Normal Cognition, No Motor/ Sensory Deficits Psychiatric: Normal Affect, Normal Mood Skin Exam: Warm, Dry, Intact, Normal Color, No Rash Lymphatic: No Adenopathy Course - Vital Signs Last Recorded V/S: Last Vital Signs Temp 36.5 C 12/07/17 06:10 Pulse 62 12/07/17 07:58 Resp 18 12/07/17 07:58 BP 106/75 12/07/17 07:58 Pulse Ox 98 12/07/17 07:58 - Orders/Labs/Meds Orders: Active Orders 24 hr Category Date Time Status EKG Documentation Completion [RC] ASDIRECTED Care 12/07/17 06:29 Active EKG Documentation Completion [RC] ASDIRECTED Care 12/07/17 06:53 Ordered Chest 1V Frontal [CR] Stat Exams 12/07/17 06:43 Ordered UA W/MICROSCOPIC [URIN] Stat Lab 12/07/17 06:38 Ordered Sodium Chloride 0.9% [Normal Saline] 1,000 ml Med 12/07/17 07:00 Ordered IV ASDIRECTED EKG 12 Lead [EK] Routine Ther 12/07/17 06:29 Ordered EKG 12 Lead [EK] Routine Ther 12/07/17 06:51 Ordered Medication Orders Sodium Chloride (Normal Saline) 1,000 mls @ 999 mls/hr IV ASDIRECTED [facility] Last Admin: 12/07/17 06:55 Dose: 999 mls/hr Labs: Laboratory Tests 12/07/17 12/07/17 12/07/17 Range/Units 06:55 06:55 06:55 WBC 8.5 (4.5-12.0) X10-3/uL RBC 5.55 (4.30-5.75) x10(6)uL Hgb 15.8 H (11.5-15.5) g/dL Hct 47.4 (30.0-51.3) % MCV 85.3 (80-96) fL MCH 28.5 (27.7-33.6) pg MCHC 33.4 (32.2-35.4) g/dL RDW 11.7 (11.5-15.5) % Plt Count 258 (125-369) X10(3)uL MPV 8.0 (7.4-10.4) fL Neut % (Auto) 58.0 (46-82) % Lymph % (Auto) 29.6 (13-37) % [place] % (Auto) 5.9 (4-12) % Eos % (Auto) 6 H (1.0-5.0) % Baso % (Auto) 1 (0-2) % Neut # (Auto) 4.9 (1.6-8.3) # Lymph # (Auto) 2.5 (0.6-5.0) # [place] # (Auto) 0.5 (0.0-1.3) # Eos # (Auto) 0.5 (0.0-0.8) # Baso # (Auto) 0.1 (0.0-0.2) # D-Dimer, Quantitative < 100 L (100-400) ng/mL Sodium 140 (135-145) mmol/L Potassium 3.6 (3.5-5.3) mmol/L Chloride 102 D (100-110) mmol/L Carbon Dioxide 27 (21-32) mmol/L BUN 18 (7-18) mg/dL Creatinine 0.8 (0.70-1.30) mg/dL Est Cr Clr Drug Dosing TNP Estimated GFR (MDRD) > 60 (>60) BUN/Creatinine Ratio 22.5 H (9-20) Glucose 190 H D (80-116) mg/dL Hemoglobin A1c (4.5-6.2) % Calcium 9.2 (8.6-10.2) mg/dL Total Bilirubin 0.6 (0.1-1.3) mg/dL AST 17 (5-25) IU/L ALT 32 (12-36) U/L Alkaline Phosphatase 67 (56-112) IU/L Troponin I (<0.017-0.056) ng/mL C-Reactive Protein (0.5-0.9) mg/dL Total Protein 7.8 (6.0-8.0) g/dL Albumin 3.9 (3.5-5.2) g/dL Globulin 3.9 g/dL Albumin/Globulin Ratio 1.0 TSH, Ultra Sensitive (0.36-3.74) IU/mL 12/07/17 12/07/17 12/07/17 Range/Units 06:55 06:55 06:55 WBC (4.5-12.0) X10-3/uL RBC (4.30-5.75) x10(6)uL Hgb (11.5-15.5) g/dL Hct (30.0-51.3) % MCV (80-96) fL MCH (27.7-33.6) pg MCHC (32.2-35.4) g/dL RDW (11.5-15.5) % Plt Count (125-369) X10(3)uL MPV (7.4-10.4) fL Neut % (Auto) (46-82) % Lymph % (Auto) (13-37) % [place] % (Auto) (4-12) % Eos % (Auto) (1.0-5.0) % Baso % (Auto) (0-2) % Neut # (Auto) (1.6-8.3) # Lymph # (Auto) (0.6-5.0) # [place] # (Auto) (0.0-1.3) # Eos # (Auto) (0.0-0.8) # Baso # (Auto) (0.0-0.2) # D-Dimer, Quantitative (100-400) ng/mL Sodium (135-145) mmol/L Potassium (3.5-5.3) mmol/L Chloride (100-110) mmol/L Carbon Dioxide (21-32) mmol/L BUN (7-18) mg/dL Creatinine (0.70-1.30) mg/dL Est Cr Clr Drug Dosing Estimated GFR (MDRD) (>60) BUN/Creatinine Ratio (9-20) Glucose (80-116) mg/dL Hemoglobin A1c 10.0 H (4.5-6.2) % Calcium (8.6-10.2) mg/dL Total Bilirubin (0.1-1.3) mg/dL AST (5-25) IU/L ALT (12-36) U/L Alkaline Phosphatase (56-112) IU/L Troponin I < 0.017 L (<0.017-0.056) ng/mL C-Reactive Protein < 0.2 L (0.5-0.9) mg/dL Total Protein (6.0-8.0) g/dL Albumin (3.5-5.2) g/dL Globulin g/dL Albumin/Globulin Ratio TSH, Ultra Sensitive 1.66 (0.36-3.74) IU/mL Meds: Medications Generic Name Dose Route Start Last Admin Trade Name Freq PRN Reason Stop Dose Admin Sodium Chloride 1,000 mls @ 999 mls/hr 12/07/17 07:00 12/07/17 06:55 Normal Saline IV 999 mls/hr ASDIRECTED BETTY Administration Discontinued Medications Generic Name Dose Route Start Last Admin Trade Name Freq PRN Reason Stop Dose Admin Aspirin 324 mg 12/07/17 06:13 12/07/17 06:13 Aspirin PO 12/07/17 06:14 324 mg ONETIME ONE Administration Nitroglycerin 0.4 mg 12/07/17 06:14 12/07/17 06:14 Nitrostat SL 12/07/17 06:15 0.4 mg ONETIME ONE Administration Nitroglycerin 0.4 mg 12/07/17 06:38 12/07/17 06:42 Nitrostat SL 12/07/17 06:39 0.4 mg ONETIME ONE Administration - Re-Assessments/Exams Free Text/Narrative Re-Assessment/Exam: 12/07/17 08:08 c/w telephone switchboard operator Dr Delacruz nuclear radiation engineer for [facility], he said that an inpt stress is appropriate in a high risk pt with an abnormal EKG, d/w hospitalist who accepted him in transfer and asked for pt to be NPO for possible EST before 1 PM today, pt agrees to transfer pt did fall asleep here after being awake all night, still has 2/10 CP Departure - Departure Time of Disposition: 08:10 Disposition: DC/Tfer to Acute Hospital 02 Reason for Transfer *Q: Other Condition: Good Clinical Impression: Chest pain, rule out acute myocardial infarction Referrals: PCP,Unknown [Primary Care Provider] - Forms: ED Department Discharge - My Orders Last 24 Hours: My Active Orders 12/07/17 06:29 EKG Documentation Completion [RC] ASDIRECTED EKG 12 Lead [EK] Routine 12/07/17 06:38 UA W/MICROSCOPIC [URIN] Stat 12/07/17 06:43 Chest 1V Frontal [CR] Stat 12/07/17 06:51 EKG 12 Lead [EK] Routine 12/07/17 06:53 EKG Documentation Completion [RC] ASDIRECTED 12/07/17 07:00 Sodium Chloride 0.9% [Normal Saline] 1,000 ml IV ASDIRECTED - Assessment/Plan Last 24 Hours: My Active Orders 12/07/17 06:29 EKG Documentation Completion [RC] ASDIRECTED EKG 12 Lead [EK] Routine 12/07/17 06:38 UA W/MICROSCOPIC [URIN] Stat 12/07/17 06:43 Chest 1V Frontal [CR] Stat 12/07/17 06:51 EKG 12 Lead [EK] Routine 12/07/17 06:53 EKG Documentation Completion [RC] ASDIRECTED 12/07/17 07:00 Sodium Chloride 0.9% [Normal Saline] 1,000 ml IV ASDIRECTED
[2017-12-07] MEDS ORDERED: Sodium Chloride 0.9% 1,000 ML IV SCH (07:00)
--- NOTE | 2017-12-07 10:33 | CR ---
INDICATION: Left-sided chest pain. CHEST: An AP upright portable view of the chest, 12/07/2017, revealed the heart to be near the upper limits of normal in size. The aorta is somewhat tortuous. Overlying EKG leads are noted. An active infiltrate or effusion was not identified. IMPRESSION: No acute process - probable mild ASHD - full inspiration PA and lateral views of the chest may be helpful for further evaluation when clinically possible. MTDD
[2017-12-07 11:37] VITALS: BP 111/68
== END 2017-12-07 08:50 ==
LOC: FB.ED 05:58
DX: R07.9 Chest pain, unspecified (principal); Z91.018 Allergy to other foods; Z79.899 Other long term (current) drug therapy; Z87.891 Personal history of nicotine dependence
CPT/HCPCS: 36415; 71045; 80053; 81001; 83036; 84443; 84484; 85025; 85379; 86140; 93005; 96360; 99285; A9270; J7040

== ENCOUNTER 2017-12-09 12:36 | Emergency (ER) | payer BC ==
--- NOTE | 2017-12-09 15:42 | EDM.PDOC ---
ED HPI GENERAL MEDICAL PROBLEM - General Chief Complaint: Genitourinary Problem Stated Complaint: BLOOD IN URINE Time Seen by Provider: 12/09/17 12:50 Source of Information: Reports: Patient, Family History Limitations: Reports: No Limitations - History of Present Illness INITIAL COMMENTS - FREE TEXT/NARRATIVE: 42 y.o.w.m with a H/O anxiety and a h/O urolithiasis came to the ed with his SO due to blood in his urine and pain at his left lower abd. (minor). No trauma. Pt was seen a few days ago in this ED yesterday for C/P, had a stress test in [place], which was neg. No N/V/D or any other acute medical issues at this time. BP 114/75 RR 18 Pulse ox 95% on RA Temp 36.9 pulse 88 Onset Date: 12/09/17 Onset Time: 07:00 Duration: Hour(s):, Intermittent Location: Reports: Pelvis Quality: Reports: Other (painless hematuria) Severity: Mild Improves with: Reports: None Worsens with: Reports: None Context: Reports: Other (h/o kidneystones) Associated Symptoms: Reports: No Other Symptoms - Related Data Allergies Allergy/AdvReac Type Severity Reaction Status Date / Time soy Allergy throat Verified 12/09/17 13:04 closed, passed out Home Meds: Home Meds atorvaSTATin [Lipitor] 20 mg PO BEDTIME #30 tablet 09/17/17 [Rx] metFORMIN [Glucophage XR] 500 mg PO BIDMEALS #30 tab.er 09/17/17 [Rx] Glimepiride [Amaryl] 2 mg PO BEDTIME 12/07/17 [History] Past Medical History - Past Health History Medical/Surgical History: Denies Medical/Surgical History HEENT History: Reports: Hard of Hearing Other HEENT History: R hearing issues, had MRSA behind R eardrum. Cardiovascular History: Reports: Other (See Below) Other Cardiovascular History: Episode of chest pain November 2017, stress test negative. Respiratory History: Reports: Other (See Below) Other Respiratory History: States that he has hx of having a piece of meat in his throat 5-6 years ago that he ended up being sedated to remove the meat. Gastrointestinal History: Reports: Other (See Below) Other Gastrointestinal History: Had stomach issues when child, but unsure what were. Genitourinary History: Reports: Other (See Below) Other Genitourinary History: Hx episodes of low mid abdominal pain, blood in urine. Psychiatric History: Reports: Anxiety, Depression, Psych Hospitalization(s) Dermatologic History: Reports: Other (See Below) Other Dermatologic History: Hx MRSA to L groin area in past. - Infectious Disease History Infectious Disease History: Reports: MRSA - Past Surgical History HEENT Surgical History: Reports: Other (See Below) Social & Family History - Family History Family Medical History: Noncontributory - Tobacco Use Smoking Status *Q: Former Smoker Years of Tobacco use: 6 Packs/Tins Daily: 1 Used Tobacco, but Quit: No Month/Year Tobacco Last Used: 2016 Second Hand Smoke Exposure: No - Caffeine Use Caffeine Use: Reports: Energy Drinks - Recreational Drug Use Recreational Drug Use: No Drug Use in Last 12 Months: No Recreational Drug Type: Reports: Marijuana/Hashish ED ROS GENERAL - Review of Systems Review Of Systems: See Below Constitutional: Reports: No Symptoms HEENT: Reports: No Symptoms Respiratory: Reports: No Symptoms Cardiovascular: Reports: No Symptoms Endocrine: Reports: No Symptoms GI/Abdominal: Reports: No Symptoms : Reports: Flank Pain, Hematuria Musculoskeletal: Reports: No Symptoms Skin: Reports: No Symptoms Neurological: Reports: No Symptoms Psychiatric: Reports: No Symptoms Hematologic/Lymphatic: Reports: No Symptoms Immunologic: Reports: No Symptoms ED EXAM, RENAL/ - Physical Exam Exam: See Below Exam Limited By: No Limitations General Appearance: Alert, WD/WN, No Apparent Distress Eye Exam: Bilateral Eye: Normal Inspection Ears: Normal External Exam Nose: Normal Inspection, Normal Mucosa Throat/Mouth: Normal Inspection, Normal Lips Head: Atraumatic Neck: Normal Inspection, Supple, Non-Tender, Full Range of Motion Respiratory/Chest: No Respiratory Distress, Lungs Clear, Normal Breath Sounds, No Accessory Muscle Use, Chest Non-Tender Cardiovascular: Normal Peripheral Pulses, Regular Rate, Rhythm, No Edema, No Gallop, No JVD, No Murmur, No Rub GI/Abdominal: Normal Bowel Sounds, Soft, No Organomegaly, No Distention, No Abnormal Bruit, No Mass, Pelvis Stable, Tender (left lower abdomen.) (Male) Exam: Deferred Rectal (Males) Exam: Deferred Back Exam: Normal Inspection, Full Range of Motion Extremities: Normal Inspection, Normal Range of Motion, Non-Tender, No Pedal Edema, Normal Capillary Refill Neurological: Alert, Oriented, CN II-XII Intact, Normal Cognition, Normal Gait, No Motor/Sensory Deficits Psychiatric: Normal Affect, Normal Mood Skin Exam: Warm, Dry, Intact, Normal Color, No Rash Lymphatic: No Adenopathy Course - Vital Signs Text/Narrative:: 42 y.o.w.m with a H/O anxiety and a h/O urolithiasis came to the ed with his SO due to blood in his urine and pain at his left lower abd. (minor). No trauma. Pt was seen a few days ago in this ED yesterday for C/P, had a stress test in [place], which was neg. No N/V/D or any other acute medical issues at this time. BP 114/75 RR 18 Pulse ox 95% on RA Temp 36.9 pulse 88 PE: WNWD W M with blood in his urine and minor LLQ abd,. pain. Imaging: CT abd/pelvis NAD, Poss paniculitis Labs: UA pos for Tani hematuria SG 1.030 Impression: Microcytic hematuria. discomfort LLQ of abd. Tx: None Reexam: Improved Plan: D/C with instructions Last Recorded V/S: Last Vital Signs Temp 36.6 C 12/09/17 15:40 Pulse 74 12/09/17 15:40 Resp 16 12/09/17 15:40 BP 112/75 12/09/17 15:40 Pulse Ox 99 12/09/17 15:40 - Orders/Labs/Meds Orders: Active Orders 24 hr Category Date Time Status Abdomen Pelvis wo Cont [CT] Stat Exams 12/09/17 13:24 Taken Labs: Laboratory Tests 12/09/17 Range/Units 12:55 Urine Color Yellow (YELLOW) Urine Appearance Slightly cloudy (CLEAR) Urine pH 5.0 (5.0-6.5) Ur Specific [place] 1.030 H (1.010-1.025) Urine Protein Negative (NEGATIVE) mg/dL Urine Glucose (UA) Normal (NEGATIVE) mg/dL Urine Ketones Negative (NEGATIVE) mg/dL Urine Occult Blood Large H (NEGATIVE) Urine Nitrite Negative (NEGATIVE) Urine Bilirubin Negative (NEGATIVE) Urine Urobilinogen Normal (NEGATIVE) mg/dL Ur Leukocyte Esterase Negative (NEGATIVE) Urine RBC 50-75 H (0) Urine WBC 0-5 (0) Ur Squamous Epith Cells Few H (NS,R,O) Calcium Oxalate Crystal Few H (NS) Urine Bacteria Few H (NS) Departure - Departure Time of Disposition: 15:40 Disposition: Home, Self-Care 01 Condition: Good Clinical Impression: Hematuria, microscopic, Panniculitis - Discharge Information Referrals: PCP,None [Primary Care Provider] - Forms: ED Department Discharge Additional Instructions: Please increase water intake, repeat urine analysis in 3-4 days. if still blood in urine please f/u with a urologist a.s.a.p. Please come back if your symptoms get worse acutely. - My Orders Last 24 Hours: My Active Orders 12/09/17 13:24 Abdomen Pelvis wo Cont [CT] Stat - Assessment/Plan Last 24 Hours: My Active Orders 12/09/17 13:24 Abdomen Pelvis wo Cont [CT] Stat
[2017-12-09 15:44] VITALS: BP 112/75
== END 2017-12-09 15:50 | disposition home or self-care (01) ==
LOC: FB.ED 12:36
DX: M79.3 Panniculitis, unspecified (principal); R31.29 Other microscopic hematuria; Z91.018 Allergy to other foods; Z87.891 Personal history of nicotine dependence
CPT/HCPCS: 74176; 81001; 99283